=== PATIENT | female | born 1995 | race Two or more races ===

== ENCOUNTER 2024-11-30 16:36 | Emergency (ER) | payer MEDICAID, OTHER ==
[~2024-11-30] VITALS: Ht 154.9 cm; Wt 56.9 kg
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
[2024-11-30] MEDS: ACETAMINOPHEN 325 MG TAB PO ONE (17:48)
[2024-11-30 17:50] VITALS: BP 149/83; PULSE 78; RESP 18; TEMP 97.6; O2SAT 99
[2024-11-30] MEDS ORDERED: METH-1182 PO (17:54)
[2024-11-30] MEDS ORDERED: IBUP-1454 PO (17:54)
== END 2024-11-30 18:02 | disposition home or self-care (01) ==
LOC: ER 16:36
DX: S16.1XXA Strain of muscle, fascia and tendon at neck level, initial encounter (principal); S39.012A Strain of muscle, fascia and tendon of lower back, initial encounter; Z79.1 Long term (current) use of non-steroidal anti-inflammatories (NSAID); V43.52XA Car driver injured in collision with other type car in traffic accident, initial encounter; Y93.89 Activity, other specified; Y92.488 Other paved roadways as the place of occurrence of the external cause; Y99.8 Other external cause status
CPT/HCPCS: 72040; 72100